=== PATIENT | female | born 1940 | race Caucasian/White ===

== ENCOUNTER → 2016-12-18 | Outpatient (REF) | payer MEDICARE, OTHER ==
[~2016-12-18] MED LIST: /WARF25TA OR; /WARF25TA PO; ACET65TA OR; ALEVE PO; AMBI5TAB PO; AMLO5TAB2 PO; ASPI1TAB PO; ASPIRIN PO; ATEN100T PO; ATENPOW PO; ATOR1TAB19 PO; B COCAP5 PO; BABY81CH OR; BACT800T5 PO; BIOT1TAB PO; CALCTAB92 PO; CLON0.5T OR; CLON0.5T PO; CLOZAPINE PO; DEXA10IN INJ; DOCUSATE SODIUM PO; EFFEXOR PO; EX-L5TAB OR; IPRASOL4 INH; LEVA1.25 INH; LIPITOR PO; MULTLIQ7 PO; NAPR1TAB41 PO; NORV5TAB OR; OMEP20CA3 PO; OMEPPOW18 PO; PERC5TAB12 PO; PERC5TAB8 OR; PERC7.5T8 OR; PERCOCET PO; PRED10TA PO; PRED20TA PO; PREVACID PO; TYLE325T5 PO; VENL150C43 PO; VERAPAMIL PO; VITA100066 PO; VITA500T PO; [UNRECOGNIZED DRUG - OTHER] PO; stool softener PO
== END ==
LOC: M LAB REF 16:47
PROVIDERS: ATTEND Surgery
DX: C44.712 Basal cell carcinoma of skin of right lower limb, including hip (principal)

== ENCOUNTER → 2017-10-25 | Outpatient (REF) | payer MEDICARE, OTHER | LOC: M LAB REF 18:34 | DX: C44.01 Basal cell carcinoma of skin of lip (principal); E04.2 Nontoxic multinodular goiter | CPT/HCPCS: 88313 ==

== ENCOUNTER 2018-04-23 11:49 | Inpatient (IN) | payer MEDICARE, OTHER ==
[2018-04-23 13:05] LABS: BASO % 0.2 % (0.0-1.0); EOS # 0.1 10^3/uL (0.0-0.50); EOS % 0.3 % (0.0-3.0); HEMATOCRIT 45.4 % (36.0-47.0); HEMOGLOBIN 14.7 g/dl (12.0-15.5); IMMATURE GRANULOCYTE % 0.4 % (0-3.0); LYMPH # 2.6 10^3/uL (1.5-4.5); LYMPH % 14.3 % (24.0-44.0); MEAN CORPUSCULAR HEMOGLOBIN 29.2 pg (27.0-33.0); MEAN CORPUSCULAR HGB CONC 32.4 g/dl (32.0-36.5); MEAN CORPUSCULAR VOLUME 90.1 fl (80.0-96.0); MONO # 1.4 10^3/uL (0.0-0.8); MONO % 7.9 % (0.0-5.0); NEUTROPHILS % 76.9 % (36.0-66.0); PLATELET COUNT, AUTOMATED 349 10^3/uL (150-450); RED BLOOD COUNT 5.04 10^6/uL (4.00-5.40); WHITE BLOOD COUNT 18.2 10^3/uL (4.0-10.0)
[2018-04-23] MEDS: NS 1,000 ML IV ×2 (13:05→22:38)
[2018-04-23 13:08] LABS: ANION GAP 8 MEQ/L (8-16); BLOOD UREA NITROGEN 12 MG/DL (7-18); CALCIUM LEVEL 8.7 MG/DL (8.8-10.2); CARBON DIOXIDE LEVEL 27 MEQ/L (21-32); CHLORIDE LEVEL 104 MEQ/L (98-107); CREATININE FOR GFR 0.86 MG/DL (0.55-1.30); GLOMERULAR FILTRATION RATE > 60.0 (>39); GLUCOSE, FASTING 98 MG/DL (70-100); POTASSIUM SERUM 3.9 MEQ/L (3.5-5.1); SODIUM LEVEL 139 MEQ/L (136-145)
[2018-04-23] MEDS ORDERED: GASTROGRAFIN SOLUTION 30ML (Q9963) As Ordered (13:14)
[2018-04-23 13:18] LABS: INR 1.07; PARTIAL THROMBOPLASTIN TIME 26.1 SECONDS (25.4-37.6)
[2018-04-23] MEDS: GASTROGRAFIN SOLUTION 30ML PO ×2 (13:18→13:55)
[2018-04-23] MEDS ORDERED: ISOVUE-370 76% 100ML VIAL (Q9967) As Ordered (14:41)
[2018-04-23] MEDS: CIPROFLOXACIN 400 MG in APPROPRIATE DILUENT 1 EA IV (16:40)
[2018-04-23 16:42] LABS: LACTIC ACID SEPSIS PROTOCOL 2.8 MMOL/L (0.4-2.0)
[2018-04-23] MEDS: metroNIDAZOLE 500 MG in APPROPRIATE DILUENT 1 EA IV (18:15)
[2018-04-23] MEDS ORDERED: traZODone 50 MG TAB PO (19:15)
[2018-04-23] MEDS: ATORVASTATIN 20 MG TAB PO (22:39)
[2018-04-23] MEDS: clonazePAM 0.5 MG TAB PO (22:39)
[2018-04-23] MEDS: LATANOPROST 0.005% OPHTH SOLN 2.5 ML OU (22:39)
[2018-04-24] MEDS: metroNIDAZOLE 500 MG in APPROPRIATE DILUENT 1 EA IV ×3 (02:55→18:32)
[2018-04-24] MEDS: NS 1,000 ML IV (05:06)
[2018-04-24] MEDS: CIPROFLOXACIN 400 MG in APPROPRIATE DILUENT 1 EA IV ×2 (05:18→16:08)
[2018-04-24 06:34] LABS: ALBUMIN 3.1 GM/DL (3.2-5.2); ALBUMIN/GLOBULIN RATIO 1.11 (1.00-1.93); ALKALINE PHOSPHATASE 96 U/L (45-117); ALT/SGPT 23 U/L (12-78); ANION GAP 9 MEQ/L (8-16); AST/SGOT 19 U/L (7-37); BILIRUBIN,TOTAL 0.8 MG/DL (0.2-1.0); BLOOD UREA NITROGEN 9 MG/DL (7-18); CALCIUM LEVEL 7.9 MG/DL (8.8-10.2); CARBON DIOXIDE LEVEL 24 MEQ/L (21-32); CHLORIDE LEVEL 107 MEQ/L (98-107); CREATININE FOR GFR 0.69 MG/DL (0.55-1.30); GLOMERULAR FILTRATION RATE > 60.0 (>39); GLUCOSE, FASTING 103 MG/DL (70-100); POTASSIUM SERUM 3.5 MEQ/L (3.5-5.1); SODIUM LEVEL 140 MEQ/L (136-145); TOTAL PROTEIN 5.9 GM/DL (6.4-8.2)
[2018-04-24 08:11] LABS: LACTIC ACID SEPSIS PROTOCOL 1.6 MMOL/L (0.4-2.0)
[2018-04-24 08:12] LABS: HEMATOCRIT 39.1 % (36.0-47.0); HEMOGLOBIN 12.9 g/dl (12.0-15.5); MEAN CORPUSCULAR HEMOGLOBIN 29.7 pg (27.0-33.0); MEAN CORPUSCULAR VOLUME 90.1 fl (80.0-96.0); PLATELET COUNT, AUTOMATED 289 10^3/uL (150-450); RED BLOOD COUNT 4.34 10^6/uL (4.00-5.40); RED CELL DISTRIBUTION WIDTH 14.1 % (11.5-14.5); WHITE BLOOD COUNT 15.2 10^3/uL (4.0-10.0)
[2018-04-24] MEDS: VENLAFAXINE **XR** 75MG CAPSULE PO (08:26)
[2018-04-24] MEDS: clonazePAM 0.5 MG TAB PO ×2 (08:27→21:19)
[2018-04-24] MEDS: amLODIPine 5 MG TAB PO (08:27)
[2018-04-24] MEDS: ATENOLOL 50 MG TAB PO (08:27)
[2018-04-24] MEDS: MULTIVITAMINS/MINERALS THERAP 1 TAB PO (08:27)
[2018-04-24] MEDS: GOLYTELY SOLN 4000 ML BTL PO (17:55)
[2018-04-24] MEDS: ATORVASTATIN 20 MG TAB PO (21:19)
[2018-04-24] MEDS: LATANOPROST 0.005% OPHTH SOLN 2.5 ML OU (21:19)
[2018-04-25] MEDS: metroNIDAZOLE 500 MG in APPROPRIATE DILUENT 1 EA IV (02:08)
[2018-04-25] MEDS: CIPROFLOXACIN 400 MG in APPROPRIATE DILUENT 1 EA IV (04:18)
[2018-04-25] MEDS: GOLYTELY SOLN 4000 ML BTL PO (06:00)
[2018-04-25 06:52] LABS: ANION GAP 12 MEQ/L (8-16); BLOOD UREA NITROGEN 3 MG/DL (7-18); CALCIUM LEVEL 7.8 MG/DL (8.8-10.2); CARBON DIOXIDE LEVEL 24 MEQ/L (21-32); CHLORIDE LEVEL 108 MEQ/L (98-107); CREATININE FOR GFR 0.71 MG/DL (0.55-1.30); GLOMERULAR FILTRATION RATE > 60.0 (>39); GLUCOSE, FASTING 122 MG/DL (70-100); POTASSIUM SERUM 3.3 MEQ/L (3.5-5.1); SODIUM LEVEL 144 MEQ/L (136-145)
[2018-04-25 07:43] LABS: HEMATOCRIT 40.5 % (36.0-47.0); HEMOGLOBIN 13.3 g/dl (12.0-15.5); MEAN CORPUSCULAR HEMOGLOBIN 28.9 pg (27.0-33.0); MEAN CORPUSCULAR HGB CONC 32.8 g/dl (32.0-36.5); PLATELET COUNT, AUTOMATED 301 10^3/uL (150-450); WHITE BLOOD COUNT 13.5 10^3/uL (4.0-10.0)
[2018-04-25] MEDS: VENLAFAXINE **XR** 75MG CAPSULE PO (09:41)
[2018-04-25] MEDS: clonazePAM 0.5 MG TAB PO ×2 (09:42→21:52)
[2018-04-25] MEDS: MULTIVITAMINS/MINERALS THERAP 1 TAB PO (09:45)
[2018-04-25] MEDS: ATENOLOL 50 MG TAB PO (09:45)
[2018-04-25] MEDS: amLODIPine 5 MG TAB PO (09:45)
[2018-04-25] MEDS ORDERED: fentaNYL 100 MCG/2 ML INJECTION (J3010) As Ordered (18:41)
[2018-04-25] MEDS ORDERED: PROPOFOL 200 MG/20 ML VIAL As Ordered (18:41)
[2018-04-25] MEDS ORDERED: LIDOCAINE 2% INJ 100 MG/5 ML SDV (FOR ANES.) As Ordered (18:41)
[2018-04-25] MEDS: LR 1,000 ML IV (19:30)
[2018-04-25] MEDS: ATORVASTATIN 20 MG TAB PO (21:51)
[2018-04-25] MEDS: OMEPRAZOLE 20 MG CAP PO (21:51)
[2018-04-25] MEDS: NS 1,000 ML IV (21:51)
[2018-04-25] MEDS: LATANOPROST 0.005% OPHTH SOLN 2.5 ML OU (21:52)
[2018-04-26 06:45] LABS: HEMATOCRIT 38.9 % (36.0-47.0); HEMOGLOBIN 12.5 g/dl (12.0-15.5); MEAN CORPUSCULAR HEMOGLOBIN 29.4 pg (27.0-33.0); MEAN CORPUSCULAR HGB CONC 32.1 g/dl (32.0-36.5); MEAN CORPUSCULAR VOLUME 91.5 fl (80.0-96.0); PLATELET COUNT, AUTOMATED 288 10^3/uL (150-450); RED BLOOD COUNT 4.25 10^6/uL (4.00-5.40); RED CELL DISTRIBUTION WIDTH 14.2 % (11.5-14.5); WHITE BLOOD COUNT 8.2 10^3/uL (4.0-10.0)
[2018-04-26 06:57] LABS: ANION GAP 7 MEQ/L (8-16); BLOOD UREA NITROGEN 3 MG/DL (7-18); CARBON DIOXIDE LEVEL 26 MEQ/L (21-32); CHLORIDE LEVEL 110 MEQ/L (98-107); CREATININE FOR GFR 0.68 MG/DL (0.55-1.30); GLOMERULAR FILTRATION RATE > 60.0 (>39); GLUCOSE, FASTING 96 MG/DL (70-100); POTASSIUM SERUM 3.5 MEQ/L (3.5-5.1); SODIUM LEVEL 143 MEQ/L (136-145)
[2018-04-26] MEDS: NS 1,000 ML IV (07:52)
[2018-04-26] MEDS: clonazePAM 0.5 MG TAB PO (08:03)
[2018-04-26] MEDS: MULTIVITAMINS/MINERALS THERAP 1 TAB PO (08:03)
[2018-04-26] MEDS: VENLAFAXINE **XR** 75MG CAPSULE PO (08:03)
[2018-04-26] MEDS: amLODIPine 5 MG TAB PO (08:06)
[2018-04-26] MEDS: ATENOLOL 50 MG TAB PO (08:06)
[2018-04-26] MEDS: MIRALAX *UNIT DOSE* 17GM PACKET PO (08:06)
[2018-04-26] MEDS ORDERED: OMEPRAZOLE 20 MG CAP PO (09:00)
== END 2018-04-26 13:10 | disposition home or self-care (01) | DRG 394 ==
LOC: M ED 11:49 → M ED INP 19:06 → M MS5PR 21:15
PROC: 0DB48ZX Excision of Esophagogastric Junction, Via Natural or Artificial Opening Endoscopic, Diagnostic (ICD-10-PCS; principal; 2018-04-25 15:30)
PROC: 0DB68ZX Excision of Stomach, Via Natural or Artificial Opening Endoscopic, Diagnostic (ICD-10-PCS; 2018-04-25 15:30)
PROC: 0DBM8ZX Excision of Descending Colon, Via Natural or Artificial Opening Endoscopic, Diagnostic (ICD-10-PCS; 2018-04-25 15:30)
DX: K55.9 Vascular disorder of intestine, unspecified (principal); E87.2 Acidosis; E78.5 Hyperlipidemia, unspecified; F41.9 Anxiety disorder, unspecified; I10 Essential (primary) hypertension; R10.9 Unspecified abdominal pain; K57.30 Diverticulosis of large intestine without perforation or abscess without bleeding; K21.0 Gastro-esophageal reflux disease with esophagitis; K44.9 Diaphragmatic hernia without obstruction or gangrene; Z79.899 Other long term (current) drug therapy; Z79.82 Long term (current) use of aspirin; M54.5 Low back pain; E66.9 Obesity, unspecified; K59.00 Constipation, unspecified; K22.70 Barrett's esophagus without dysplasia

== ENCOUNTER 2018-08-05 09:20 | Day surgery (SDC) | payer MEDICARE, OTHER ==
[~2018-08-05] VITALS: Ht 144.8 cm; Wt 70.3 kg
[~2018-08-05 09:20] MED LIST changes: +ALEV220T26 PO; -AMLO5TAB2 PO; +AMLO5TAB6 PO; +ATOR1TAB21 PO; +BIOT1CAP2 PO; +CALC600T57 PO; -CLON0.5T PO; +CLON0.5T8 PO; +COLA100C5 PO; +ESOM0.1C PO; +ESOM1CAP5 PO; +IPRA0.00 INH; -IPRASOL4 INH; +MELA5TAB17 PO; +NS 1,000 ML IV ONE; +POLY33503 PO; +PROBCAP14 PO; +TRAV04OPD OU; +TRAZ-160 PO; +VITA100T20 PO; +VITA500C24 PO; +VITMTA PO; +VOLT1GEL15 TD
[2018-08-05] MEDS ORDERED: PROPOFOL 500 MG/50 ML VIAL As Ordered ONE (10:40)
[2018-08-05] MEDS ORDERED: LIDOCAINE 2% INJ 100 MG/5 ML SDV (FOR ANES.) As Ordered ONE (10:40)
--- NOTE | 2018-08-05 11:05 | ROOR ---
Patient Name: Danette Terrazas Procedure Date: 08/05/2018 10:37 AM Date of : 1940 Age: 77 Room: [facility] Gender: Female Note Status: Finalized Procedure: Colonoscopy Indications: Follow-up of acute ischemic colitis Providers: Myles BOYER MD Referring MD: VERONICA WATSON DO Requesting Provider: Medicines: Monitored Anesthesia Care Complications: No immediate complications. Procedure: Pre-Anesthesia Assessment: - The heart rate, respiratory rate, oxygen saturations, blood pressure, adequacy of pulmonary ventilation, and response to care were monitored throughout the procedure. The Colonoscope was introduced through the anus and advanced to the cecum, identified by appendiceal orifice and ileocecal valve. The colonoscopy was performed without difficulty. The patient tolerated the procedure well. The quality of the bowel preparation was good. Findings: The perianal and digital rectal examinations were normal. A 4 mm polyp was found in the splenic flexure. The polyp was sessile. The polyp was removed with a cold snare. Resection and retrieval were complete. Three sessile and semi-pedunculated polyps were found in the sigmoid colon. The polyps were 5 to 10 mm in size. These polyps were removed with a hot snare. Resection and retrieval were complete. Multiple medium-mouthed diverticula were found in the sigmoid colon. The exam was otherwise without abnormality on direct and retroflexion views. Impression: - One 4 mm polyp at the splenic flexure, removed with a cold snare. Resected and retrieved. - Three 5 to 10 mm polyps in the sigmoid colon, removed with a hot snare. Resected and retrieved. - Diverticulosis in the sigmoid colon. - The examination was otherwise normal on direct and retroflexion views. - (Ischemic colitis has resolved) Recommendation: - Repeat colonoscopy in 3 years for surveillance. - No ibuprofen, naproxen, or other non-steroidal anti-inflammatory drugs for 10 days after polyp removal. Myles Boyer MD Myles BOYER MD 08/05/2018 11:04:41 AM This report has been signed electronically. Number of Addenda: 0 Note Initiated On: 08/05/2018 10:37 AM Estimated Blood Loss: Estimated blood loss: none.
[2018-08-05 11:20] VITALS: BP 175/82
== END 2018-08-05 11:44 | disposition home or self-care (01) ==
LOC: M OPP 09:20
PROVIDERS: ATTEND Internal Medicine Gastroenterology
DX: D12.3 Benign neoplasm of transverse colon (principal); D12.5 Benign neoplasm of sigmoid colon; K57.30 Diverticulosis of large intestine without perforation or abscess without bleeding; K55.039 Acute (reversible) ischemia of large intestine, extent unspecified

== ENCOUNTER → 2018-08-25 | Outpatient (CLI) | payer MEDICARE, OTHER ==
[~2018-08-25] MED LIST changes: -/WARF25TA OR; -/WARF25TA PO; -ASPI1TAB PO; +ASPI81TA26 PO; +COUM1TAB18 OR; +COUM1TAB18 PO; -NS 1,000 ML IV ONE; +OXYC1TAB23 PO; -PERCOCET PO; +PRED-351 PO; -PRED10TA PO; -VITA100T20 PO; +VITA100T51 PO
--- NOTE | 2018-08-25 14:19 | REP ---
Clinical: Acute right shoulder pain. Technique: Internal rotation, external rotation, and Y view of the right shoulder. Findings: Age-related osteopenia is appreciated. There appears to be a large spur along the inferior aspect of the acromion process as well as cortical irregularity and spurring along the glenoid rim and greater tuberosity of the humeral head. Subacromial space appears normal. No periarticular calcifications or loose bodies are identified. No acute fracture dislocation. Impression: Osteopenia and arthritic degenerative changes as described above. Clinical correlation is recommended. MRI should be considered if the patient remains symptomatic.
== END ==
LOC: M CLY 13:47
PROVIDERS: ATTEND Family Medicine
DX: M85.811 Other specified disorders of bone density and structure, right shoulder (principal); M25.711 Osteophyte, right shoulder; M25.511 Pain in right shoulder
CPT/HCPCS: 73030; G0463

== ENCOUNTER → 2019-06-22 | Outpatient (REF) | payer MEDICARE, OTHER ==
[~2019-06-22] MED LIST changes: +CLON0.5T2 PO; -CLON0.5T8 PO; -MELA5TAB17 PO; +MELA5TAB31 PO; +OMEP1CAP73 PO; -OMEP20CA3 PO; -TRAZ-160 PO; +TRAZ-252 PO
[2019-06-22 18:06] LABS: BASO # 0.1 10^3/uL (0.0-0.2); BASO % 0.5 % (0.0-1.0); EOS # 0.2 10^3/uL (0.0-0.5); EOS % 1.7 % (0.0-3.0); HEMATOCRIT 42.5 % (36.0-47.0); HEMOGLOBIN 13.7 g/dl (12.0-15.5); LYMPH # 3.2 10^3/uL (1.5-5.0); LYMPH % 32.3 % (24.0-44.0); MEAN CORPUSCULAR HGB CONC 32.2 g/dl (32.0-36.5); MEAN CORPUSCULAR VOLUME 93.2 fl (80.0-96.0); MONO # 1.1 10^3/uL (0.0-0.8); MONO % 11.4 % (0.0-5.0); NEUTROPHILS # 5.4 10^3/uL (1.5-8.5); NEUTROPHILS % 53.6 % (36.0-66.0); PLATELET COUNT, AUTOMATED 355 10^3/uL (150-450); RED BLOOD COUNT 4.56 10^6/uL (4.00-5.40)
[2019-06-22 18:24] LABS: ALBUMIN 3.9 GM/DL (3.2-5.2); ALT/SGPT 21 U/L (12-78); BILIRUBIN,TOTAL 0.3 MG/DL (0.2-1.0); BLOOD UREA NITROGEN 22 MG/DL (7-18); CALCIUM LEVEL 8.7 MG/DL (8.8-10.2); CARBON DIOXIDE LEVEL 30 MEQ/L (21-32); CHLORIDE LEVEL 109 MEQ/L (98-107); CHOLESTEROL LEVEL 151 MG/DL (<200); CHOLESTEROL RISK RATIO 3.682 (<5); GLOMERULAR FILTRATION RATE > 60.0 (>32); GLUCOSE, FASTING 82 MG/DL (70-100); HDL CHOLESTEROL 41 MG/DL (>40); LDL CHOLESTEROL 86 MG/DL (<100); NON-HDL-C 110 MG/DL; POTASSIUM SERUM 4.6 MEQ/L (3.5-5.1); SODIUM LEVEL 143 MEQ/L (136-145); TOTAL PROTEIN 6.8 GM/DL (6.4-8.2); TRIGLYCERIDES LEVEL 119 MG/DL (<150)
== END ==
LOC: M SFHCCLAY 11:35
PROVIDERS: ATTEND Family Medicine
DX: I10 Essential (primary) hypertension (principal); E78.2 Mixed hyperlipidemia
CPT/HCPCS: 80053; 80061; 85025; G0463

== ENCOUNTER → 2020-06-30 | Outpatient (REF) | payer MEDICARE, OTHER ==
[~2020-06-30] MED LIST changes: +AMLO1TAB24 PO; -AMLO5TAB6 PO; -MELA5TAB31 PO; +MELA5TAB36 PO; +VITA-243 PO; -VITA500T PO
[2020-07-01 11:31] LABS: BASO # 0.1 10^3/uL (0.0-0.2); BASO % 0.8 % (0.0-1.0); EOS # 0.2 10^3/uL (0.0-0.5); HEMATOCRIT 44.6 % (36.0-47.0); LYMPH # 2.8 10^3/uL (1.5-5.0); LYMPH % 26.1 % (24.0-44.0); MEAN CORPUSCULAR HGB CONC 31.4 g/dl (32.0-36.5); MEAN CORPUSCULAR VOLUME 92.3 fl (80.0-96.0); MONO # 1.2 10^3/uL (0.0-0.8); MONO % 10.9 % (0.0-5.0); NEUTROPHILS # 6.4 10^3/uL (1.5-8.5); NEUTROPHILS % 59.9 % (36.0-66.0); PLATELET COUNT, AUTOMATED 369 10^3/uL (150-450); RED BLOOD COUNT 4.83 10^6/uL (4.00-5.40)
[2020-07-01 11:33] LABS: WHITE BLOOD COUNT 10.6 10^3/uL (4.0-10.0)
[2020-07-01 12:17] LABS: ALBUMIN 4.1 GM/DL (3.2-5.2); ALT/SGPT 24 U/L (12-78); BILIRUBIN,TOTAL 0.4 MG/DL (0.2-1.0); BLOOD UREA NITROGEN 18 MG/DL (7-18); CALCIUM LEVEL 9.5 MG/DL (8.8-10.2); CARBON DIOXIDE LEVEL 29 MEQ/L (21-32); CHLORIDE LEVEL 106 MEQ/L (98-107); CHOLESTEROL LEVEL 160 MG/DL (<200); CHOLESTEROL RISK RATIO 3.404 (<5); CREATININE FOR GFR 0.72 MG/DL (0.55-1.30); GLOMERULAR FILTRATION RATE > 60.0 (>32); GLUCOSE, FASTING 112 MG/DL (70-100); HDL CHOLESTEROL 47 MG/DL (>40); LDL CHOLESTEROL 85 MG/DL (<100); NON-HDL-C 113 MG/DL; SODIUM LEVEL 142 MEQ/L (136-145); TOTAL PROTEIN 7.2 GM/DL (6.4-8.2); TRIGLYCERIDES LEVEL 141 MG/DL (<150)
== END ==
LOC: M SFHCCLAY 14:56
PROVIDERS: ATTEND Family Medicine
DX: E78.2 Mixed hyperlipidemia (principal); I10 Essential (primary) hypertension
CPT/HCPCS: 80053; 80061; 85025; G0463

== ENCOUNTER → 2021-05-31 | Outpatient (REF) | payer MEDICARE, OTHER ==
[2021-05-31 11:38] LABS: BASO # 0.1 10^3/uL (0.0-0.2); BASO % 0.4 % (0.0-1.0); EOS # 0.2 10^3/uL (0.0-0.5); EOS % 1.5 % (0.0-3.0); HEMATOCRIT 44.3 % (36.0-47.0); HEMOGLOBIN 13.8 g/dl (12.0-15.5); LYMPH # 2.9 10^3/uL (1.5-5.0); LYMPH % 24.2 % (24.0-44.0); MEAN CORPUSCULAR HEMOGLOBIN 28.8 pg (27.0-33.0); MEAN CORPUSCULAR HGB CONC 31.2 g/dl (32.0-36.5); MEAN CORPUSCULAR VOLUME 92.5 fl (80.0-96.0); MONO # 0.8 10^3/uL (0.0-0.8); MONO % 6.4 % (2.0-8.0); NEUTROPHILS % 67.1 % (36.0-66.0); PLATELET COUNT, AUTOMATED 375 10^3/uL (150-450); RED BLOOD COUNT 4.79 10^6/uL (4.00-5.40); WHITE BLOOD COUNT 11.9 10^3/uL (4.0-10.0)
[2021-05-31 12:11] LABS: ALBUMIN 3.6 GM/DL (3.2-5.2); ALT/SGPT 26 U/L (12-78); BILIRUBIN,TOTAL 0.2 MG/DL (0.2-1.0); BLOOD UREA NITROGEN 16 MG/DL (7-18); CARBON DIOXIDE LEVEL 29 MEQ/L (21-32); CHLORIDE LEVEL 108 MEQ/L (98-107); CHOLESTEROL LEVEL 137 MG/DL (<200); CHOLESTEROL RISK RATIO 3.044 (<5); CREATININE FOR GFR 0.76 MG/DL (0.55-1.30); FREE T4 0.78 NG/DL (0.76-1.46); GLOMERULAR FILTRATION RATE > 60.0 (>32); GLUCOSE, FASTING 161 MG/DL (70-100); HDL CHOLESTEROL 45 MG/DL (>40); IRON (FE) 76 UG/DL (50-170); LDL CHOLESTEROL 68 MG/DL (<100); NON-HDL-C 92 MG/DL; POTASSIUM SERUM 4.3 MEQ/L (3.5-5.1); SODIUM LEVEL 142 MEQ/L (136-145); TOTAL PROTEIN 6.6 GM/DL (6.4-8.2); TOTAL T3 84.9 NG/DL (60.0-181.0); TRIGLYCERIDES LEVEL 119 MG/DL (<150)
== END ==
LOC: M SFHCCLAY 07:29
PROVIDERS: ATTEND Family Medicine
DX: I10 Essential (primary) hypertension (principal); R00.0 Tachycardia, unspecified; E78.2 Mixed hyperlipidemia

== ENCOUNTER → 2021-08-28 | Outpatient (REF) | payer MEDICARE, OTHER ==
[2021-08-28 11:54] LABS: BASO # 0.1 10^3/uL (0.0-0.2); BASO % 0.8 % (0.0-1.0); EOS # 0.2 10^3/uL (0.0-0.5); EOS % 2.2 % (0.0-3.0); HEMATOCRIT 42.8 % (36.0-47.0); HEMOGLOBIN 13.6 g/dl (12.0-15.5); LYMPH # 2.4 10^3/uL (1.5-5.0); LYMPH % 31.2 % (24.0-44.0); MEAN CORPUSCULAR HEMOGLOBIN 29.4 pg (27.0-33.0); MEAN CORPUSCULAR HGB CONC 31.8 g/dl (32.0-36.5); MEAN CORPUSCULAR VOLUME 92.6 fl (80.0-96.0); MONO # 0.8 10^3/uL (0.0-0.8); MONO % 10.1 % (2.0-8.0); NEUTROPHILS # 4.3 10^3/uL (1.5-8.5); NEUTROPHILS % 55.4 % (36.0-66.0); PLATELET COUNT, AUTOMATED 309 10^3/uL (150-450); RED BLOOD COUNT 4.62 10^6/uL (4.00-5.40); WHITE BLOOD COUNT 7.8 10^3/uL (4.0-10.0)
[2021-08-28 12:21] LABS: ALBUMIN 3.7 GM/DL (3.2-5.2); ALT/SGPT 27 U/L (12-78); BILIRUBIN,TOTAL 0.4 MG/DL (0.2-1.0); BLOOD UREA NITROGEN 16 MG/DL (7-18); CALCIUM LEVEL 8.9 MG/DL (8.8-10.2); CARBON DIOXIDE LEVEL 32 MEQ/L (21-32); CHLORIDE LEVEL 110 MEQ/L (98-107); CREATININE FOR GFR 0.73 MG/DL (0.55-1.30); GLOMERULAR FILTRATION RATE > 60.0 (>32); GLUCOSE, FASTING 112 MG/DL (70-100); POTASSIUM SERUM 4.3 MEQ/L (3.5-5.1); SODIUM LEVEL 144 MEQ/L (136-145); TOTAL PROTEIN 6.7 GM/DL (6.4-8.2)
[2021-08-28 12:58] LABS: HEMOGLOBIN A1c 5.6 %
== END ==
LOC: M SFHCCLAY 08:33
PROVIDERS: ATTEND Family Medicine
DX: I10 Essential (primary) hypertension (principal); R73.01 Impaired fasting glucose

== ENCOUNTER → 2022-07-10 | Outpatient (REF) | payer MEDICARE, OTHER ==
[2022-07-10 17:39] LABS: BASO # 0.1 10^3/uL (0.0-0.2); BASO % 0.6 % (0.0-1.0); EOS # 0.2 10^3/uL (0.0-0.5); EOS % 1.9 % (0.0-3.0); HEMATOCRIT 38.9 % (36.0-47.0); HEMOGLOBIN 12.5 g/dl (12.0-15.5); LYMPH # 2.6 10^3/uL (1.5-5.0); LYMPH % 32.4 % (24.0-44.0); MEAN CORPUSCULAR HGB CONC 32.1 g/dl (32.0-36.5); MEAN CORPUSCULAR VOLUME 93.3 fl (80.0-96.0); MONO # 0.8 10^3/uL (0.0-0.8); MONO % 10.6 % (2.0-8.0); NEUTROPHILS # 4.3 10^3/uL (1.5-8.5); NEUTROPHILS % 54.1 % (36.0-66.0); PLATELET COUNT, AUTOMATED 424 10^3/uL (150-450); RED BLOOD COUNT 4.17 10^6/uL (4.00-5.40); WHITE BLOOD COUNT 7.9 10^3/uL (4.0-10.0)
[2022-07-10 18:08] LABS: HEMOGLOBIN A1c 5.6 % (4.0-6.0)
[2022-07-10 18:17] LABS: ALBUMIN 3.8 G/DL (3.2-5.2); ALKALINE PHOSPHATASE 142 U/L (46-116); ALT/SGPT 23 U/L (7.0-40); AST/SGOT 24 U/L (<34); BILIRUBIN,TOTAL 0.4 MG/DL (0.3-1.2); BLOOD UREA NITROGEN 17 MG/DL (9-23); CALCIUM LEVEL 9.3 MG/DL (8.3-10.6); CARBON DIOXIDE LEVEL 27 MMOL/L (20-31); CHLORIDE LEVEL 108 MMOL/L (98-107); CHOLESTEROL LEVEL 152 MG/DL (<200); CHOLESTEROL RISK RATIO 3.16 (<5); CREATININE FOR GFR 0.63 MG/DL (0.55-1.30); GLOMERULAR FILTRATION RATE > 60.0 (>32); GLUCOSE, FASTING 123 MG/DL (74-106); LDL CHOLESTEROL 76.2 MG/DL (<100); NON-HDL-C 104 MG/DL; SODIUM LEVEL 142 MMOL/L (136-145); THYROID STIMULATING HORMONE 2.439 uIU/ML (0.55-4.78); TOTAL PROTEIN 6.7 G/DL (5.7-8.2); TRIGLYCERIDES LEVEL 139 MG/DL (<150)
== END ==
LOC: M SFHCCLAY 14:02
PROVIDERS: ATTEND Family Medicine
DX: I10 Essential (primary) hypertension (principal); E78.2 Mixed hyperlipidemia; R73.01 Impaired fasting glucose

== ENCOUNTER → 2023-12-24 | Outpatient (REF) | payer MEDICARE, OTHER ==
[~2023-12-24] MED LIST changes: -ESOM0.1C PO; +ESOM1CAP20 PO; -ESOM1CAP5 PO; +ESOM20CA2 PO
[2023-12-24 19:04] LABS: BASO % 0.2 % (0.0-1.0); EOS # 0.4 10^3/uL (0.0-0.5); EOS % 3.6 % (0.0-3.0); HEMATOCRIT 44.1 % (36.0-47.0); HEMOGLOBIN 14.3 g/dl (12.0-15.5); LYMPH # 2.6 10^3/uL (1.5-5.0); LYMPH % 21.8 % (24.0-44.0); MEAN CORPUSCULAR HEMOGLOBIN 30.9 pg (27.0-33.0); MEAN CORPUSCULAR HGB CONC 32.4 g/dl (32.0-36.5); MEAN CORPUSCULAR VOLUME 95.2 fl (80.0-96.0); MONO # 1.1 10^3/uL (0.0-0.8); MONO % 9.6 % (2.0-8.0); NEUTROPHILS # 7.6 10^3/uL (1.5-8.5); NEUTROPHILS % 64.4 % (36.0-66.0); PLATELET COUNT, AUTOMATED 335 10^3/uL (150-450); RED BLOOD COUNT 4.63 10^6/uL (4.00-5.40); WHITE BLOOD COUNT 11.8 10^3/uL (4.0-10.0)
[2023-12-24 19:16] LABS: ALKALINE PHOSPHATASE 99 U/L (46-116); ALT/SGPT 21 U/L (7.0-40); AST/SGOT 13 U/L (<34); BILIRUBIN,TOTAL 0.6 MG/DL (0.3-1.2); BLOOD UREA NITROGEN 17 MG/DL (9-23); CALCIUM LEVEL 9.3 MG/DL (8.3-10.6); CARBON DIOXIDE LEVEL 27 MMOL/L (20-31); CHLORIDE LEVEL 108 MMOL/L (98-107); CHOLESTEROL LEVEL 136 MG/DL (<200); CHOLESTEROL RISK RATIO 3.34 (<5); CREATININE FOR GFR 0.67 MG/DL (0.55-1.30); GLOMERULAR FILTRATION RATE > 60.0 (>32); GLUCOSE, FASTING 117 MG/DL (74-106); HDL CHOLESTEROL 40.7 MG/DL (>40); LDL CHOLESTEROL 70.7 MG/DL (<100); MAGNESIUM LEVEL 1.9 MG/DL (1.8-2.4); NON-HDL-C 95.3 MG/DL; POTASSIUM SERUM 4.3 MMOL/L (3.5-5.1); SODIUM LEVEL 143 MMOL/L (136-145); TOTAL PROTEIN 6.8 G/DL (5.7-8.2); TRIGLYCERIDES LEVEL 123 MG/DL (<150)
[2023-12-24 20:21] LABS: HEMOGLOBIN A1c 5.4 % (4.0-6.0)
== END ==
LOC: M SFHCCLAY 14:47
PROVIDERS: ATTEND Family Medicine
DX: I10 Essential (primary) hypertension (principal); R73.01 Impaired fasting glucose; E78.2 Mixed hyperlipidemia

== ENCOUNTER → 2024-06-30 | Outpatient (CLI) | payer MEDICARE, OTHER | LOC: M PLAIMG 15:17 | PROVIDERS: ATTEND Physician Assistant Medical | DX: K44.9 Diaphragmatic hernia without obstruction or gangrene (principal); J40 Bronchitis, not specified as acute or chronic ==

== ENCOUNTER → 2024-07-30 | Outpatient (CLI) | payer MEDICARE, OTHER | LOC: M CLY 13:58 | PROVIDERS: ATTEND Family Medicine | DX: M79.672 Pain in left foot (principal) ==

== ENCOUNTER → 2024-07-30 | Outpatient (CLI) | payer MEDICARE, OTHER | LOC: M CLY 14:15 | PROVIDERS: ATTEND Family Medicine | DX: M20.12 Hallux valgus (acquired), left foot (principal); M21.612 Bunion of left foot; M79.672 Pain in left foot ==